=== PATIENT | female | born 2000 | race Caucasian/White ===

== ENCOUNTER 2022-01-04 07:28 | Day surgery (SDC) | payer OTHER ==
[~2022-01-04] VITALS: Ht 160 cm; Wt 63.6 kg
[2022-01-04] MEDS ORDERED: PROSOM1 MG PO (07:53)
[2022-01-04] MEDS ORDERED: PROZAC 10MG10 MG PO (07:55)
[2022-01-04] MEDS ORDERED: VALTREX 50500 MG/TAB PO (07:56)
[2022-01-04 08:14] VITALS: BP 112/74; PULSE 80; TEMP 98.8
[2022-01-04] MEDS ORDERED: ANUSOL-HC SUPPO25 MG RC (09:38)
[2022-01-04 09:47] VITALS: BP 93/61; PULSE 92
[2022-01-04 10:00] VITALS: BP 98/67; PULSE 67
[2022-01-04 10:15] VITALS: BP 101/64; PULSE 61
--- NOTE | 2022-01-04 10:48 | NUR ---
5240 Pt returns from endo procedure via cart and RN assist to [facility] [place] [facility]. Pt ambulates from cart to recliner with RN assist. Monitors on and alarms set. Call light within reach. Report received from CHRISTINA Shirley. Pt alert and oriented. Pt requests food and drink. Pt denies any pain or nausea, but states she's "tired" and just wants to rest. 1010 Pt taking food and drink well. No complications noted. Pt remains tired and answers all questions well. 1037 Discharge instructions given to pt and pt's friend. All questions answered to their satisfaction. Handed to pt are a thank you card and discharge information. 1046 Pt transferred out of the hospital via wheelchair and this RN assist, to private vehicle driven by pt's friend.
--- NOTE | 2022-01-04 10:48 | NUR ---
1091 Pt returns from endo procedure via cart and RN assist to [facility] [place] [facility]. Pt ambulates from cart to recliner with RN assist. Monitors on and alarms set. Call light within reach. Report received from CHRISTINA Shirley. Pt oriented but remains drowsy. Pt requests food and drink. Pt denies any pain or nausea, but states she's "tired" and just wants to rest. 1010 Pt taking food and drink well. No complications noted. Pt remains tired and answers all questions well. 1037 Discharge instructions given to pt and pt's friend. All questions answered to their satisfaction. Handed to pt are a thank you card and discharge information. 1047 Pt transferred out of the hospital via wheelchair and this RN assist, to private vehicle driven by pt's friend.
== END 2022-01-04 10:48 | disposition home or self-care (01) ==
LOC: SDCO 07:28
PROVIDERS: Internal Medicine Gastroenterology
DX: K92.1 Melena (principal); R10.13 Epigastric pain; K64.0 First degree hemorrhoids; Z80.0 Family history of malignant neoplasm of digestive organs
CPT/HCPCS: J2704; J7030

== ENCOUNTER → 2022-10-18 | Outpatient (CLI) | payer OTHER ==
[~2022-10-18] MED LIST: ANUSOL-HC SUPPO25 MG RC; PROSOM1 MG PO; PROZAC 10MG10 MG PO; VALTREX 50500 MG/TAB PO
== END ==
LOC: MC.RAD 13:44
DX: N63.15 Unspecified lump in the right breast, overlapping quadrants (principal)